=== PATIENT | female | born 1960 | race Caucasian/White ===

== ENCOUNTER 2017-11-19 06:04 | Day surgery (SDC) | payer OTHER ==
[2017-11-19] MEDS ORDERED: DIPRIVAN 200 MG/20 ML IV ONE (06:05)
[2017-11-19] MEDS ORDERED: Lactated Ringers 1,000 ML IV ONE (06:26)
[2017-11-19] MEDS ORDERED: Lactated Ringers 1,000 ML IV SCH (07:00)
[2017-11-19 09:03] VITALS: O2SAT 94
[2017-11-19 09:05] VITALS: BP 129/83; PULSE 59
--- NOTE | 2017-11-19 10:28 | OP ---
SURGERY DATE/TIME: 11/19/201724 PREOPERATIVE DIAGNOSIS: Screening exam. POSTOPERATIVE DIAGNOSIS: A few scattered sigmoid diverticula otherwise normal colon. PROCEDURE: Colonoscopy. SURGEON: Dr. Mathew. ANESTHESIA: MAC. Medications given by anesthesia department. HISTORY: The patient is a 57 year-old white female presenting now for screening colonoscopy. She was appraised of the risks of the procedure including the risk of perforation, phlebitis, untoward reaction to medication, bleeding and missed lesions. The patient verbalized her understanding and desired to have the procedure performed. DESCRIPTION OF PROCEDURE: The patient was given the medications by the anesthesia department. She had continuous pulse oximetry, ECG monitoring, intermittent blood pressure monitoring and tidal CO2 monitoring during the examination. She was placed in the left lateral decubitus position. A digital rectal examination was performed and revealed normal anal sphincter tone and no masses. The flexible Olympus pediatric colonoscope was used to intubate the rectum. A view of the colon was developed sequentially to the cecum. Upon insertion and withdrawal, there was noted a few scattered sigmoid diverticula otherwise no mucosal lesions were encountered. The scope was removed from the patient who tolerated the procedure well and was sent back to OP recovery in good condition. The prep was noted to be good.
== END 2017-11-19 08:40 | disposition home or self-care (01) ==
LOC: SDC 06:04
PROVIDERS: ATTEND Family Medicine
DX: Z12.11 Encounter for screening for malignant neoplasm of colon (principal); K57.30 Diverticulosis of large intestine without perforation or abscess without bleeding
CPT/HCPCS: 94250; J2704

== ENCOUNTER 2018-10-27 19:11 | Emergency (ER) | payer OTHER ==
[2018-10-27 19:42] VITALS: BP 141/76; PULSE 61; O2SAT 96
--- NOTE | 2018-10-27 20:07 | ERPHSYRPT ---
- History of Present Illness Time Seen by Provider: 10/27/18 19:53 Source: patient Exam Limitations: no limitations Patient Subjective Stated Complaint: Left arm/wrist injury Triage Nursing Assessment: Patient ambulated into ED and transferred self to bed. Patient A+O X 3. Patient complains of left wrist/lower arm pain after was cutting a limb down and the limb fell on left arm. Patient complains of intermittent aching 2/10. Patient's left arm noted to be slightly swollen with indention on forearm. Physician History: Pt states, her was cutting branches from a tree in their yard, she was holding the ladder. A heavy branch fell off and hit her left wrist and hand, scraped her elbow. She denies other injury or complaints. She states, her tetanus immunization is up to date. Occurred: this afternoon Method of Injury: other (heavy branch fell on it.) Quality: constant Severity of Pain-Max: moderate Severity of Pain-Current: moderate Extremities Pain Location: wrist: left, hand: left Modifying Factors: Improves With: immobilization, movement Associated Symptoms: none Allergies/Adverse Reactions: No Known Drug Allergies Allergy (Verified 10/27/18 19:27) Home Medications: Cholecalciferol (Vitamin D3) [Vitamin D3] 1,000 unit PO DAILY 11/13/17 [History] Cyanocobalamin (Vitamin B-12) [Vitamin B-12] 5,000 mcg PO DAILY 11/13/17 [ History] Levothyroxine Sodium 100 Mcg [Synthroid 100 Mcg] 100 mcg PO DAILY 11/13/17 [History] Multivitamin/Iron/Folic Acid [Centrum Adults Tablet] 1 each PO DAILY 11/13/17 [ History] Simvastatin 20Mg [Zocor 20Mg] 10 mg PO DAILY 11/13/17 [History] Tizanidine HCl 4 mg [Zanaflex 4 MG] 4 mg PO DAILY PRN 11/13/17 [History] Donepezil HCl 10 mg [Aricept 10 MG] 1 tab PO DAILY 10/27/18 [History] Hx Influenza Vaccination/Date Given: No Hx Pneumococcal Vaccination/Date Given: No Immunizations Up to Date: Yes - Review of Systems Constitutional: No Symptoms Eyes: No Symptoms Ears, Nose, & Throat: No Symptoms Respiratory: No Symptoms Cardiac: No Symptoms Abdominal/Gastrointestinal: No Symptoms Genitourinary Symptoms: No Symptoms Musculoskeletal: Other (left wrist and dorsal hand pain, and abrasions to left elbow.) Skin: No Symptoms Neurological: No Symptoms All Other Systems: Reviewed and Negative - Past Medical History Neurological History: Other ENT History: No Pertinent History Cardiac History: High Cholesterol Respiratory History: No Pertinent History Endocrine Medical History: Hypothyroidism Musculoskeletal History: No Pertinent History GI Medical History: No Pertinent History History: No Pertinent History Psycho-Social History: No Pertinent History Female Reproductive Disorders: No Pertinent History Other Medical History: TBI - Past Surgical History Past Surgical History: Yes Neuro Surgical History: No Pertinent History Cardiac: No Pertinent History Respiratory: No Pertinent History Gastrointestinal: No Pertinent History Musculoskeletal: No Pertinent History Female Surgical History: Hysterectomy - Social History Smoking Status: Never smoker Exposure to second hand smoke: No Drug Use: none Patient Lives Alone: No - Female History Hx Last Menstrual Period: hysterectomy Hx Now: No - Nursing Vital Signs Nursing Vital Signs: Initial Vital Signs Temperature 98.0 F 10/27/18 19:33 Pulse Rate 61 10/27/18 19:33 Respiratory Rate 18 10/27/18 19:33 Blood Pressure 141/76 10/27/18 19:33 O2 Sat by Pulse Oximetry 96 10/27/18 19:33 Pain Scale Pain Intensity 2 - Physical Exam General Appearance: no apparent distress Eyes, Ears, Nose, Throat Exam: normal ENT inspection Neck Exam: normal inspection, non-tender, supple Cardiovascular/Respiratory Exam: chest non-tender, normal breath sounds, regular rate/rhythm, heart sounds normal, no ecchymosis Abdominal Exam: non-tender, soft Back Exam: normal inspection, No CVA tenderness, No vertebral tenderness Shoulder Exam: normal inspection, non-tender Elbow/Forearm Exam: non-tender, abrasions (superficial abrasions on the dorsal aspect of the elbow and proximal forearm. Normal ROM, no deformity, or severe swelling.) Wrist Exam: normal inspection, soft tissue tenderness, No abrasions, No deformity, No ecchymosis Hand Exam: normal inspection, soft tissue tenderness, No abrasions, No deformity Neuro/Tendon Exam: normal sensation, normal motor functions Mental Status Exam: alert, oriented x 3, cooperative, depressed affect Skin Exam: normal color, warm, dry, No diaphoresis SpO2 Interpretation: normal SpO2: 96 O2 Delivery: Room Air - Course Nursing assessment & vital signs reviewed: Yes - Radiology Exams Left Wrist X-ray Interpretation: Interpreted by me, Negative Left Hand X-ray Interpretation: Interpreted by me, Negative Ordered Tests: Active Orders 24 hr Category Date Time Status HAND (MINIMUM 3 VIEWS) Stat Exams 10/27/18 19:58 Taken WRIST (MIN 3 VIEWS) Stat Exams 10/27/18 19:58 Taken - Progress Progress: unchanged Progress Note: 10/27/18 20:54 We reviewed her X rays, discussed with her, she is being discharged to rest with elevated hand x 1-2 days, apply ice or cold compresses to swelling and follow up with her physician in 2-3 days. Counseled pt/family regarding: diagnosis, need for follow-up, rad results - Departure Departure Disposition: Home Clinical Impression: Wrist contusion Qualifiers: Encounter type: initial encounter Laterality: left Qualified Code(s): S60.212A - Contusion of left wrist, initial encounter Condition: Stable Critical Care Time: No Referrals: PAMELA MELGAR [Primary Care Provider] - Instructions: Contusion (DC), Skin Abrasions (DC) Additional Instructions: Rest with elevated hand x 1-2 days, apply ice or cold compresses to swelling and follow up with your physician in 2-3 days! Return if severe pain, swelling, sudden discoloration and coldness of the fingers!
--- NOTE | 2018-10-28 11:14 | XRAY ---
Exam: 3 view left hand series from 10/27/2018. Comparison: None. Indication: Patient was struck with a heavy branch while tree trimming. Findings: AP, oblique, and lateral images of the left hand were obtained. I see no acute fracture or dislocation. The joint spaces appear essentially unremarkable. No other focal bone lesion is seen. No radiopaque soft tissue foreign body is seen. Impression: 1. No acute fracture or dislocation of the left hand is seen.
--- NOTE | 2018-10-28 11:16 | XRAY ---
Exam: 3 views of the left wrist from 10/27/2018. Comparison: None. Indication: Patient struck with a heavy branch while tree trimming. Findings: AP, oblique, and lateral radiographs of the left wrist were obtained. I see no acute fracture or dislocation. There is a small, sclerotic rimmed, oval-shaped calcification adjacent to the ulnar styloid process, likely representing an ununited accessory ossicle or remote avulsion injury. The radiocarpal joint appears unremarkable. The carpal scaphoid bone and remainder of the carpus appear unremarkable. Impression: 1. No acute left wrist fracture or dislocation is seen.
== END 2018-10-27 21:06 | disposition home or self-care (01) ==
LOC: ED 19:11
DX: S60.212A Contusion of left wrist, initial encounter (principal); S50.312A Abrasion of left elbow, initial encounter; W20.8XXA Other cause of strike by thrown, projected or falling object, initial encounter; E03.9 Hypothyroidism, unspecified; Z79.899 Other long term (current) drug therapy
CPT/HCPCS: 73110; 73130; 99283

== ENCOUNTER 2022-07-21 16:22 | Emergency (ER) | payer OTHER ==
[2022-07-21 17:07] LABS: Absolute Neutrophil Ct (ANC) 5.88 x10^3/uL (1.4-6.9); BASOPHIL % 0.2 % (0.0-0.4); Basophil (Absolute #) 0.01 x10^3/uL (0-0.4); Eosinophil % 0.9 % (0.00-5.0); Eosinophil (Absolute #) 0.06 x10^3/uL (0-0.5); Hematocrit 37.7 % (35-47); Hemoglobin 12.3 g/dL (12.0-16.0); IMMATURE GRAN # 0.02 x10^3u/L (0.00-0.03); IMMATURE GRAN % 0.3 % (0.00-0.4); Lymphocyte (Absolute #) 0.32 x10^3/uL (1.0-4.6); Lymphocytes % 4.9 % (24.0-44.0); Mean Cell Volume 92.9 fL (78-100); Mean Corpuscular Hemoglobin 30.3 pg (26-32); Mean Corpuscular Hgb Concent. 32.6 g/dL (32-36); Mean Platelet Volume 8.7 fL (7.5-11.0); Monocyte (Absolute #) 0.26 x10^3/uL (0.0-1.3); Neutrophil % 89.7 % (36.0-66.0); Platelet Count 214 x10^3/uL (150-450); Red Blood Count 4.06 x10^6/uL (4.1-5.4); Red Cell Distribution Width 12.6 % (11.5-14.0); White Blood Count 6.6 x10^3/uL (4.0-10.5)
[2022-07-21 17:21] LABS: ALBUMIN 4.4 g/dL (3.5-5.0); ALKALINE PHOSPHATASE 65 U/L (38-126); AMYLASE 60 U/L (30-110); ANION GAP 13.3 MEQ/L (5-15); BLOOD UREA NITROGEN 15 mg/dL (7-17); CHLORIDE 108 mmol/L (98-107); Calcium 8.9 mg/dL (8.4-10.2); Carbon Dioxide 21 mmol/L (22-30); Creatinine 1 0.93 mg/dL (0.52-1.04); EST GLOMERULAR FILTRATION RATE > 60.0 ML/MIN; Glucose 112 mg/dL (74-106); LIPASE 45 U/L (23-300); Potassium 4.2 mmol/L (3.5-5.1); SGOT/AST 26 U/L (14-36); SGPT/ALT 21 U/L (0-35); SODIUM 139 mmol/L (137-145); Total Protein 7.4 g/dL (6.3-8.2)
[2022-07-21 17:51] LABS: T4 (Thyroxine) 7.7 ug/dL (5.53-10.96); TSH, 3RD Generation 0.393 mIU/L (0.47-4.68)
[2022-07-21 17:55] LABS: Slide Review 1 YES
[2022-07-21 18:06] LABS: ADD URINE CULTURE? NO (NO); Appearance Clear (Clear); Bacteria None Seen /HPF (None Seen); Bilirubin Negative (Negative); Blood Trace (Negative); Epithelial Cells None Seen /HPF (None Seen); Glucose, Urine Negative (Negative); Hyaline Casts NONE SEEN /LPF (0-2); Ketones Negative (Negative); Leukocyte Esterase Negative (Negative); Nitrite Negative (Negative); Ph 5.5 (4.6-8.0); Protein,Urine Dip Negative (Negative); RBC 0-2 /HPF (0-5); Urobilinogen 0.2 mg/dL (0.2); WBC 0-2 /HPF (0-5)
--- NOTE | 2022-07-21 19:01 | ERPHSYRPT ---
- History of Present Illness Historian: patient Exam Limitations: no limitations Patient Subjective Stated Complaint: PT states "I have had pain on and off for the past 6 months but today It really hurts and I have been searching and I think it is my pancreas." Triage Nursing Assessment: Pt presented alert and oriented X 3, skin pwd. Pt ambulates with an upright steady gait, able to speak in clear full sentences. Pt resting comfortably on the bed. Pt stated pain in her left abdomen, non tender. Physician History: 62 yo WF w LUQ pain since 3AM. pain is sharp and 4/10. It has been up to 10/16. She has had N/V/D. Melena/hematochezia/hematemesis/dysuria/hematuria/chest pain/dyspnea are all denied. She has had similar pain x 6 months Timing/Duration: other (3AM) Activities at Onset: sleep Quality: sharpness Abdominal Pain Onset Location: LUQ Pain Radiation: no radiation Severity of Pain-Max: moderate Severity of Pain-Current: moderate Modifying Factors: Improves With: nothing Associated Symptoms: diarrhea, nausea, vomiting Previous symptoms: same symptoms as today Allergies/Adverse Reactions: No Known Drug Allergies Allergy (Verified 10/27/18 19:27) Home Medications: Cholecalciferol (Vitamin D3) [Vitamin D3] 1,000 unit PO DAILY 11/13/17 [History] Cyanocobalamin (Vitamin B-12) [Vitamin B-12] 5,000 mcg PO DAILY 11/13/17 [Hi story] Levothyroxine Sodium 100 Mcg [Synthroid 100 Mcg] 100 mcg PO DAILY 11/13/17 [History] Multivitamin/Iron/Folic Acid [Centrum Adults Tablet] 1 each PO DAILY 11/13/17 [History] Simvastatin 20Mg [Zocor 20Mg] 10 mg PO DAILY 11/13/17 [History] Topiramate [Topiramate ER] 50 mg PO DAILY 07/21/22 [History] Hx Tetanus, Diphtheria Vaccination/Date Given: No Hx Influenza Vaccination/Date Given: No Hx Pneumococcal Vaccination/Date Given: No Immunizations Up to Date: Yes Travel Risk - International Travel Have you traveled outside of the country in past 3 weeks: No - Coronavirus Screening Are you exhibiting any of the following symptoms?: Yes Symptoms: Vomiting/Diarrhea Close contact with a COVID-19 positive Pt in past 14-21 Days: No - Vaccine Status Have you recieved a Covid-19 vaccination: Yes 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 - Vaccination Dates Date of 2cond Vaccination (if applicable): 2020 - Review of Systems Constitutional: Fever, Chills, Malaise Eyes: No Symptoms Ears, Nose, & Throat: No Symptoms Respiratory: No Symptoms Cardiac: No Symptoms Abdominal/Gastrointestinal: No Symptoms, Abdominal Pain, Nausea, Vomiting, Diarrhea Genitourinary Symptoms: No Symptoms Musculoskeletal: No Symptoms, Arthralgias Skin: No Symptoms Neurological: No Symptoms Psychological: No Symptoms Endocrine: No Symptoms Hematologic/Lymphatic: No Symptoms Immunological/Allergic: No Symptoms - Past Medical History Pertinent Past Medical History: Yes Neurological History: Other ENT History: No Pertinent History Cardiac History: High Cholesterol Respiratory History: No Pertinent History Endocrine Medical History: Hypothyroidism Musculoskeletal History: No Pertinent History GI Medical History: No Pertinent History History: No Pertinent History Psycho-Social History: No Pertinent History Female Reproductive Disorders: No Pertinent History Other Medical History: TBI - Past Surgical History Past Surgical History: Yes Neuro Surgical History: No Pertinent History Cardiac: No Pertinent History Respiratory: No Pertinent History Gastrointestinal: No Pertinent History Musculoskeletal: No Pertinent History Female Surgical History: Hysterectomy - Social History Smoking Status: Never smoker Exposure to second hand smoke: No Drug Use: none Patient Lives Alone: No - Nursing Vital Signs Nursing Vital Signs: Initial Vital Signs Temperature 99.7 F 07/21/22 16:32 Pulse Rate 98 H 07/21/22 16:32 Respiratory Rate 22 07/21/22 16:32 Blood Pressure 149/82 07/21/22 16:32 O2 Sat by Pulse Oximetry 98 07/21/22 16:32 Pain Scale Pain Intensity 0 Mildly hypertensive - Physical Exam General Appearance: no apparent distress Eye Exam: PERRL/EOMI, eyes nml inspection Ears, Nose, Throat Exam: normal ENT inspection, TMs normal, pharynx normal, moist mucous membranes Neck Exam: normal inspection, non-tender, supple, full range of motion, No meningismus, No mass, No Brudzinski, No Kernig's, No carotid bruit Respiratory Exam: normal breath sounds, lungs clear, airway intact Cardiovascular Exam: regular rate/rhythm, normal heart sounds, normal peripheral pulses, capillary refill <2 sec, No murmur Gastrointestinal/Abdomen Exam: soft, normal bowel sounds, tenderness (Mild TTP LUQ wo guarding or rebound) Back Exam: normal inspection, normal range of motion Extremity Exam: normal inspection, normal range of motion Neurologic Exam: alert, oriented x 3, cooperative, 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, normal mood/affect, nml cerebellar function, nml station & gait, sensation nml, No motor deficits, No sensory deficit Skin Exam: normal color, warm, dry, No rash Lymphatic Exam: No adenopathy SpO2 Interpretation: normal SpO2: 93 (Sats mid 90's) O2 Delivery: Room Air - Course Nursing assessment & vital signs reviewed: Yes - CT Exams Abdomen/Pelvis CT Interpretation: Tele-radiologist Report (CT ab-pelvis w IV contrast/Nothing acute/Mild stranding around mesenteric root) Ordered Tests: Active Orders 24 hr Category Date Time Status ABDOMEN AND PELVIS W CONTRAST [CT] Stat Exams 07/21/22 18:17 Completed AMYLASE Stat Lab 07/21/22 17:00 Completed CBC W DIFF Stat Lab 07/21/22 17:00 Completed CMP Stat Lab 07/21/22 17:00 Completed LIPASE Stat Lab 07/21/22 17:00 Completed T4 (Thyroxine) Stat Lab 07/21/22 17:00 Completed TROPONIN Q4H Lab 07/21/22 17:07 Completed TSH [TSH, 3RD Generation] Stat Lab 07/21/22 17:00 Completed UA W/RFX UR CULTURE Stat Lab 07/21/22 16:43 Completed Lab/Rad Data: Laboratory Result Diagrams 07/21/22 17:00 07/21/22 17:00 Laboratory Results 07/21/22 07/21/22 07/21/22 Range/Units 19:17 17:07 17:00 WBC (4.0-10.5) x10^3/uL RBC (4.1-5.4) x10^6/uL Hgb (12.0-16.0) g/dL Hct (35-47) % MCV (78-100) fL MCH (26-32) pg MCHC (32-36) g/dL RDW (11.5-14.0) % Plt Count (150-450) x10^3/uL MPV (7.5-11.0) fL Gran % (36.0-66.0) % Immature Gran % (Auto) (0.00-0.4) % Nucleat RBC Rel Count (0.00-0.1) % Eos # (Auto) (0-0.5) x10^3/uL Immature Gran # (Auto) (0.00-0.03) x10^3u/L Absolute Lymphs (auto) (1.0-4.6) x10^3/uL Absolute Monos (auto) (0.0-1.3) x10^3/uL Absolute Nucleated RBC (0.00-0.01) x10^3u/L Lymphocytes % (24.0-44.0) % Monocytes % (0.0-12.0) % Eosinophils % (0.00-5.0) % Basophils % (0.0-0.4) % Absolute Granulocytes (1.4-6.9) x10^3/uL Basophils # (0-0.4) x10^3/uL Sodium (137-145) mmol/L Potassium (3.5-5.1) mmol/L Chloride (98-107) mmol/L Carbon Dioxide (22-30) mmol/L Anion Gap (5-15) MEQ/L BUN (7-17) mg/dL Creatinine (0.52-1.04) mg/dL Estimated GFR ML/MIN Glucose (74-106) mg/dL Calcium (8.4-10.2) mg/dL Total Bilirubin (0.2-1.3) mg/dL AST (14-36) U/L ALT (0-35) U/L Alkaline Phosphatase (38-126) U/L Troponin I < 0.012 (0.000-0.034) ng/mL Serum Total Protein (6.3-8.2) g/dL Albumin (3.5-5.0) g/dL Amylase (30-110) U/L Lipase (23-300) U/L Thyroxine (T4) 7.70 (5.53-10.96) ug/dL TSH 3rd Generation 0.393 L (0.47-4.68) mIU/L Urine Color (Yellow) Urine Appearance (Clear) Urine pH (4.6-8.0) Ur Specific [place] (1.005-1.030) Urine Protein (Negative) Urine Glucose (UA) (Negative) mg/dL Urine Ketones (Negative) Urine Blood (Negative) Urine Nitrite (Negative) Urine Bilirubin (Negative) Urine Urobilinogen (0.2) mg/dL Ur Leukocyte Esterase (Negative) U Hyaline Cast (Auto) (0-2) /LPF Urine Microscopic RBC (0-5) /HPF Urine Microscopic WBC (0-5) /HPF Ur Epithelial Cells (None Seen) /HPF Urine Bacteria (None Seen) /HPF Urine Culture Reflexed (NO) Influenza Type A Ag NEGATIVE (NEGATIVE) Influenza Type B Ag NEGATIVE (NEGATIVE) RSV (PCR) NEGATIVE (NEGATIVE) SARS-CoV-2 (PCR) NEGATIVE (NEGATIVE) Slides for Path Review 07/21/22 07/21/22 07/21/22 Range/Units 17:00 17:00 16:43 WBC 6.6 (4.0-10.5) x10^3/uL RBC 4.06 L (4.1-5.4) x10^6/uL Hgb 12.3 (12.0-16.0) g/dL Hct 37.7 (35-47) % MCV 92.9 (78-100) fL MCH 30.3 (26-32) pg MCHC 32.6 (32-36) g/dL RDW 12.6 (11.5-14.0) % Plt Count 214 (150-450) x10^3/uL MPV 8.7 (7.5-11.0) fL Gran % 89.7 H (36.0-66.0) % Immature Gran % (Auto) 0.3 (0.00-0.4) % Nucleat RBC Rel Count 0.0 (0.00-0.1) % Eos # (Auto) 0.06 (0-0.5) x10^3/uL Immature Gran # (Auto) 0.02 (0.00-0.03) x10^3u/L Absolute Lymphs (auto) 0.32 L (1.0-4.6) x10^3/uL Absolute Monos (auto) 0.26 (0.0-1.3) x10^3/uL Absolute Nucleated RBC 0.00 (0.00-0.01) x10^3u/L Lymphocytes % 4.9 L (24.0-44.0) % Monocytes % 4.0 (0.0-12.0) % Eosinophils % 0.9 (0.00-5.0) % Basophils % 0.2 (0.0-0.4) % Absolute Granulocytes 5.88 (1.4-6.9) x10^3/uL Basophils # 0.01 (0-0.4) x10^3/uL Sodium 139 (137-145) mmol/L Potassium 4.2 (3.5-5.1) mmol/L Chloride 108 H (98-107) mmol/L Carbon Dioxide 21 L (22-30) mmol/L Anion Gap 13.3 (5-15) MEQ/L BUN 15 (7-17) mg/dL Creatinine 0.93 (0.52-1.04) mg/dL Estimated GFR > 60.0 ML/MIN Glucose 112 H (74-106) mg/dL Calcium 8.9 (8.4-10.2) mg/dL Total Bilirubin 0.60 (0.2-1.3) mg/dL AST 26 (14-36) U/L ALT 21 (0-35) U/L Alkaline Phosphatase 65 (38-126) U/L Troponin I (0.000-0.034) ng/mL Serum Total Protein 7.4 (6.3-8.2) g/dL Albumin 4.4 (3.5-5.0) g/dL Amylase 60 (30-110) U/L Lipase 45 (23-300) U/L Thyroxine (T4) (5.53-10.96) ug/dL TSH 3rd Generation (0.47-4.68) mIU/L Urine Color Yellow (Yellow) Urine Appearance Clear (Clear) Urine pH 5.5 (4.6-8.0) Ur Specific [place] 1.010 (1.005-1.030) Urine Protein Negative (Negative) Urine Glucose (UA) Negative (Negative) mg/dL Urine Ketones Negative (Negative) Urine Blood Trace (Negative) Urine Nitrite Negative (Negative) Urine Bilirubin Negative (Negative) Urine Urobilinogen 0.2 (0.2) mg/dL Ur Leukocyte Esterase Negative (Negative) U Hyaline Cast (Auto) NONE SEEN (0-2) /LPF Urine Microscopic RBC 0-2 (0-5) /HPF Urine Microscopic WBC 0-2 (0-5) /HPF Ur Epithelial Cells None Seen (None Seen) /HPF Urine Bacteria None Seen (None Seen) /HPF Urine Culture Reflexed NO (NO) Influenza Type A Ag (NEGATIVE) Influenza Type B Ag (NEGATIVE) RSV (PCR) (NEGATIVE) SARS-CoV-2 (PCR) (NEGATIVE) Slides for Path Review YES - Progress Progress Note: 07/21/22 20:24 Nursing note and vital signs reviewed No food or housing insecurities noted All lab results reviewed and shared w pt CT results reviewed and shared w pt Pt refused all pain meds during stay No obvious etiology of pt's pain, but she states that she has been getting similar pain for 6 months. Pt stable during stay wo evidence of surgical abdomen . Will discharge pt for outpt follow up. 07/21/22 20:26 Counseled pt/family regarding: lab results, diagnosis, need for follow-up, rad results Medical Desision Making - Diagnostic Testing Diagnostic test were ordered, analyzed, and reviewed by me: Yes Radiological Interpretation: Teleradiologist Report - Risk of complications Low Risk: Low risk of morbidity from additional dx testing or treatment - Departure Departure Disposition: Home Clinical Impression: Abdominal pain Condition: Stable Critical Care Time: No Referrals: PAMELA MELGAR [Primary Care Provider] - Follow up/PCP as directed Instructions: Severe Abdominal Pain, Adult (DC) Additional Instructions: Follow up with your family MD on Sunday Return to ER for increasing pain or temperature greater than 100.5
--- NOTE | 2022-07-21 19:54 | XRAY ---
CLINICAL HISTORY:Generalized abdominal pain. COMPARISON:None; TECHNIQUES:CT scan of the abdomen and pelvis was performed with and without IV contrast. 80 ml of Inj. Isovue (370 mg/100 ml) were administered as intravenous contrast agent. No oral contrast. Coronal and sagittal reconstructive images were also obtained. CTDI 11.37 mGy, DLP 630.67 mGycm; FINDINGS: Scan through the lower chest reveals unremarkable lung bases and heart. Abdomen. The liver is of average size and measures 16 cm. No focal or diffuse parenchymal abnormality. The portal vein, intrahepatic biliary radicals and bile ducts are normal. The gallbladder is distended and shows no definite stones. There is no evidence of wall thickening/ pericholecystic collection. The spleen, pancreas, and adrenal glands are unremarkable. The kidneys are normal in size and shape. No calculi or hydronephrosis. The stomach and the visualized small bowel loops are unremarkable. There is a mild increase in density in the mesenteric root fat, without significant enlargement of the mesenteric or retroperitoneal lymph nodes. No free fluid or air. Pelvis. The urinary bladder is unremarkable. The ascending colon, the transverse colon, the descending colon, and the rectosigmoid colon are unremarkable. Small diverticula are noted in the sigmoid colon without CT evidence of acute diverticulitis. No evidence of bowel obstruction. Reproductive organs unremarkable. The pelvic vasculature is unremarkable. No evidence of pelvic lymphadenopathy. No definite bony abnormalities could be depicted. Bilateral facet joint arthropathies at lower lumbar levels. IMPRESSION: 1. Increased density around mesenteric route. These findings may correspond to mesenteric panniculitis, which require clinical and laboratory correlation. 2. Sigmoid colon diverticulosis without complication. Electronically Signed by: Zhao Squires MD. (07/21/2022 18:44:39 [employer] [facility])
[2022-07-21 19:59] LABS: INFLUENZA A NEGATIVE (NEGATIVE); INFLUENZA B NEGATIVE (NEGATIVE); RESPIRATORY SYNCTIAL VIRUS NEGATIVE (NEGATIVE); SARS-CoV-2 Xpert Express NEGATIVE (NEGATIVE)
[2022-07-21 20:38] VITALS: BP 120/68; PULSE 81
[2022-07-21 22:33] VITALS: O2SAT 93
== END 2022-07-21 20:37 | disposition home or self-care (01) ==
LOC: ED 16:22
DX: R10.12 Left upper quadrant pain (principal); R11.2 Nausea with vomiting, unspecified; R19.7 Diarrhea, unspecified; E78.5 Hyperlipidemia, unspecified; Z79.899 Other long term (current) drug therapy
CPT/HCPCS: 0241U; 36000; 36415; 74177; 80053; 81001; 82150; 83690; 84436; 84443; 84484; 85025; 99283

== ENCOUNTER 2023-04-13 09:36 | Emergency (ER) | payer MEDICARE, OTHER ==
--- NOTE | 2023-04-13 09:47 | ERPHSYRPT ---
- History of Present Illness Time Seen by Provider: 04/13/23 09:47 Source: patient Exam Limitations: no limitations Physician History: This is a 63-year-old white female patient of Dr. Mathew who presents with approximately 2 weeks of intermittent coughing and associated body aches. Patient has a history of hyperlipidemia, hypothyroidism and fibromyalgia. She has had a history of traumatic brain injury as well. Patient was seen in the [facility] on 03/[facility]/2023. She underwent testing at that time but no chest x- ray. The testing results were negative per her report. She was not placed on any medications. Patient denies chest pain. Patient denies shortness of breath. Patient denies abdominal pain. She has not had any nausea vomiting or diarrhea symptoms. Timing/Duration: week(s) (2) Cough Quality/Degree: mild, dry cough Possible Cause: no prior episodes Modifying Factors: Improves With: coughing Associated Symptoms: cough, muscle aches, No chest pain/soreness Allergies/Adverse Reactions: pregabalin [From Lyrica] Allergy (Mild, Verified 04/13/23 10:05) Home Medications: Cholecalciferol (Vitamin D3) [Vitamin D3] 1,000 unit PO DAILY 11/13/17 [History] Cyanocobalamin (Vitamin B-12) [Vitamin B-12] 5,000 mcg PO DAILY 11/13/17 [History] Levothyroxine Sodium 100 Mcg [Synthroid 100 Mcg] 75 mcg PO DAILY 11/13/17 [History] Multivitamin/Iron/Folic Acid [Centrum Adults Tablet] 1 each PO DAILY 11/13/17 [History] Simvastatin 20Mg [Zocor 20Mg] 10 mg PO DAILY 11/13/17 [History] B6/Levomefolate/B12/D3/Ala [Eb-N5 Dr Capsule] 04/13/23 [History] Hx Tetanus, Diphtheria Vaccination/Date Given: No Hx Influenza Vaccination/Date Given: No Hx Pneumococcal Vaccination/Date Given: No Travel Risk - International Travel Have you traveled outside of the country in past 3 weeks: No - Coronavirus Screening Are you exhibiting any of the following symptoms?: Yes Close contact with a COVID-19 positive Pt in past 14-21 Days: No - Vaccine Status Have you recieved a Covid-19 vaccination: Yes Maternal Child Nurse: Moderna - Vaccination Dates Date of 2cond Vaccination (if applicable): 2020 - Review of Systems Constitutional: No Symptoms, No Fever, No Chills Eyes: No Symptoms Ears, Nose, & Throat: No Symptoms Respiratory: Cough, No Wheezing Cardiac: No Symptoms, No Chest Pain Abdominal/Gastrointestinal: No Symptoms Genitourinary Symptoms: No Symptoms Musculoskeletal: Arthralgias, Myalgias Skin: No Symptoms Neurological: No Symptoms Psychological: No Symptoms Endocrine: No Symptoms Hematologic/Lymphatic: No Symptoms Immunological/Allergic: No Symptoms All Other Systems: Reviewed and Negative - Past Medical History Pertinent Past Medical History: Yes Neurological History: Other ENT History: No Pertinent History Cardiac History: High Cholesterol Respiratory History: No Pertinent History Endocrine Medical History: Hypothyroidism Musculoskeletal History: No Pertinent History GI Medical History: No Pertinent History History: No Pertinent History Psycho-Social History: No Pertinent History Female Reproductive Disorders: No Pertinent History Other Medical History: TBI - Past Surgical History Past Surgical History: Yes Neuro Surgical History: No Pertinent History Cardiac: No Pertinent History Respiratory: No Pertinent History Gastrointestinal: No Pertinent History Musculoskeletal: No Pertinent History Female Surgical History: Hysterectomy - Social History Smoking Status: Never smoker Exposure to second hand smoke: No Drug Use: none Patient Lives Alone: No - Nursing Vital Signs Nursing Vital Signs: Initial Vital Signs Temperature 98.7 F 04/13/23 09:47 Pulse Rate 81 04/13/23 09:47 Respiratory Rate 16 04/13/23 09:47 Blood Pressure 170/82 04/13/23 09:47 O2 Sat by Pulse Oximetry 97 04/13/23 09:47 Pain Scale Pain Intensity 0 - Physical Exam General Appearance: no apparent distress, alert, anxiety Eye Exam: PERRL/EOMI, eyes nml inspection Ears, Nose, Throat Exam: normal ENT inspection, moist mucous membranes Neck Exam: normal inspection, non-tender, supple, full range of motion Respiratory Exam: normal breath sounds, lungs clear, airway intact, No chest tenderness, No respiratory distress Cardiovascular Exam: regular rate/rhythm, normal heart sounds, normal peripheral pulses Gastrointestinal/Abdomen Exam: soft, normal bowel sounds, No tenderness Pelvic Exam: not done Rectal Exam: not done Back Exam: normal inspection, normal range of motion, No CVA tenderness, No vertebral tenderness Extremity Exam: normal inspection, normal range of motion, pelvis stable Neurologic Exam: alert, oriented x 3, cooperative, occ therapist II-XII nml as tested, normal mood/affect, nml cerebellar function, nml station & gait, sensation nml Skin Exam: normal color, warm, dry Lymphatic Exam: No adenopathy SpO2 Interpretation: normal O2 Delivery: Room Air - Course Nursing assessment & vital signs reviewed: Yes Ordered Tests: Active Orders 24 hr Category Date Time Status CHEST 1 VIEW (PORTABLE) Stat Exams 04/13/23 09:59 Completed Medication Summary Discontinued Medications Generic Name Dose Route Start Last Admin Trade Name Dhruv PRN Reason Stop Dose Admin Acetaminophen 650 mg 04/13/23 10:11 04/13/23 10:20 Acetaminophen 325 Mg Tablet PO 04/13/23 10:12 650 mg STAT STA Administration Acetaminophen Confirm 04/13/23 10:16 Acetaminophen 325 Mg Tablet Administered 04/13/23 10:17 Dose 650 mg .ROUTE .STK[employer] ONE Ibuprofen 600 mg 04/13/23 10:11 04/13/23 10:20 Ibuprofen 600 Mg Tablet PO 04/13/23 10:12 600 mg STAT STA Administration Ibuprofen Confirm 04/13/23 10:15 Ibuprofen 600 Mg Tablet Administered 04/13/23 10:16 Dose 600 mg .ROUTE .[employer] Lab/Rad Data: Laboratory Results 04/13/23 04/13/23 Range/Units Unknown 10:05 Influenza Type A Ag POSITIVE (NEGATIVE) Influenza Type B Ag NEGATIVE (NEGATIVE) RSV (PCR) NEGATIVE (NEGATIVE) SARS-CoV-2 (PCR) NEGATIVE (NEGATIVE) Group A Strep Antibody NOT DETECTED (NEGATIVE) - Progress Progress: improved, re-examined Air Movement: good Progress Note: 04/13/23 10:16 This patient's medical issue is 1 of low complexity. The level complex in the workup performed based on review of the patient's past medical history, review of patient's medication list, review of patient drug allergy list, history present illness and physical findings on examination. The workup in this patient includes viral swabs, group A strep swab and chest x-ray. 04/13/23 10:44 I reviewed and interpreted the laboratory data results. Patient has influenza A infection. Her symptoms have been going on for 2 weeks. She will not be given a prescription for Tamiflu. However we will send a prescription of an antibiotic to her pharmacy since she is having symptoms that have lasted for 2 weeks. I interpreted the chest x-ray on this patient. Chest x-ray shows no acute cardiopulmonary process. Blood Culture(s) Obtained: No Antibiotics given: No Counseled pt/family regarding: lab results, diagnosis, need for follow-up, rad results Medical Desision Making - Diagnostic Testing Diagnostic test were ordered, analyzed, and reviewed by me: Yes Radiological Interpretation: Interpreted by me - Risk of complications The pt has a mod risk of morbidity or mortality based on: Need for prescription drug management - Departure Departure Disposition: Home Clinical Impression: Influenza A H1N1 infection Condition: Stable Critical Care Time: No Referrals: PAMELA MATHEW [Primary Care Provider] - Follow up/PCP as directed Additional Instructions: Drink plenty of clear liquids. Avoid any exposure to smoke. Take your medications as prescribed. Call your primary care provider today, 04/13/2023, to make arrangements for a follow-up appointment next 5 to 7 days. Prescriptions: Cefdinir 300 mg PO BID #14 cap Prednisone 10 mg [Deltasone 10 mg] 10 mg PO TID #12 tablet Hydrocodone/Acetaminophen [Hydrocodone-Acetamn 7.5-325/15] 10 ml PO Q8H PRN #120 ml MDD 30 ml PRN Reason: Cough
[2023-04-13 10:04] VITALS: PULSE 81; RESP 16; TEMP 98.7
[2023-04-13] MEDS ORDERED: TYLENOL 325 MG PO STA (10:11)
[2023-04-13] MEDS ORDERED: MOTRIN 600 MG PO STA (10:11)
[2023-04-13] MEDS ORDERED: MOTRIN 600 MG ONE (10:15)
[2023-04-13] MEDS ORDERED: TYLENOL 325 MG ONE (10:16)
[2023-04-13 10:36] LABS: INFLUENZA B NEGATIVE (NEGATIVE); RESPIRATORY SYNCTIAL VIRUS NEGATIVE (NEGATIVE); SARS-CoV-2 Xpert Express NEGATIVE (NEGATIVE)
[2023-04-13 10:40] LABS: INFLUENZA A POSITIVE (NEGATIVE)
--- NOTE | 2023-04-13 10:40 | XRAY ---
Indication: Cough 2 weeks. Comparison: January 18, 2022 Portable chest again demonstrates normal heart and lungs. Bony thorax intact with again osteopenia and mild degenerative changes. No new/acute findings.
[2023-04-13 10:44] VITALS: BP 134/90; O2SAT 92
== END 2023-04-13 11:07 | disposition home or self-care (01) ==
LOC: ED 09:36
DX: J10.1 Influenza due to other identified influenza virus with other respiratory manifestations (principal); R05.1 Acute cough; M79.10 Myalgia, unspecified site; E78.5 Hyperlipidemia, unspecified; Z79.52 Long term (current) use of systemic steroids; Z79.891 Long term (current) use of opiate analgesic; Z79.899 Other long term (current) drug therapy
CPT/HCPCS: 0241U; 71045; 87651; 99282; A9270-GY